=== PATIENT | female | born 1950 | race Asian ===

== ENCOUNTER 2018-12-19 10:27 | Day surgery (SDC) | payer OTHER ==
[2018-12-19] MEDS ORDERED: METOCLOPRAMIDE 10 MG INJ IV (13:30)
[2018-12-19] MEDS ORDERED: ONDANSETRON 4 MG INJ IV (13:30)
[2018-12-19] MEDS ORDERED: hydrALAzine 20 MG INJ IV (13:30)
[2018-12-19] MEDS ORDERED: LABETALOL HCL 20MG INJ IV (13:30)
== END 2018-12-19 15:14 | disposition home or self-care (01) ==
LOC: GIL 10:27
DX: K21.0 Gastro-esophageal reflux disease with esophagitis (principal); K29.80 Duodenitis without bleeding; K29.70 Gastritis, unspecified, without bleeding; I10 Essential (primary) hypertension; E11.9 Type 2 diabetes mellitus without complications; E78.5 Hyperlipidemia, unspecified
CPT/HCPCS: 43239; 82962; 88305; 88312; 88313